=== PATIENT | female | born 1970 | race Hispanic/Latino ===

== ENCOUNTER → 2019-02-27 11:36 | Outpatient (CLI) | payer OTHER, SELFPAY ==
--- NOTE | 2019-02-27 | DI.RAD.S_ITS ---
PROCEDURE: XR KNEE LT 3V INDICATIONS: knee pain TECHNIQUE: 3 views of the knee were acquired. COMPARISON: CR, XR KNEE 3VW LT, 01/23/2016, 13:37. [facility], CR, XR KNEE ARTHRITIC SERIES LT, 06/27/2017, 14:24. FINDINGS: Bones: No fractures or dislocations. No suspicious bony lesions. There is degenerative joint disease, severe in the medial femorotibial joint, and moderate in the lateral femorotibial joint and patellofemoral joint. Soft tissues: Small joint effusion. Vascular calcifications consistent with atherosclerosis. IMPRESSION: Severe degenerative joint disease. Dictated by: Sharonda Hogan M.D. on 02/27/2019 at 17:31 Approved by: Sharonda Hogan M.D. on 02/27/2019 at 17:33
--- NOTE | 2019-02-27 | DI.RAD.S_ITS ---
PROCEDURE: XR KNEE RT 3V INDICATIONS: Pain in unspecified knee TECHNIQUE: 3 views of the knee were acquired. COMPARISON: [facility], CR, XR KNEE 4+ VIEWS RIGHT, 04/26/2018, 18:12. FINDINGS: Bones: No fractures or dislocations. No suspicious bony lesions. There is moderate tricompartmental knee joint degeneration, increased compared to the last exam. Soft tissues: Small joint effusion. No suspicious soft tissue calcifications. IMPRESSION: Moderate degenerative joint disease. Dictated by: Sharonda Hogan M.D. on 02/27/2019 at 17:29 Approved by: Sharonda Hogan M.D. on 02/27/2019 at 17:30
== END ==
DX: M25.561 Pain in right knee (principal); M25.562 Pain in left knee; M17.0 Bilateral primary osteoarthritis of knee
CPT/HCPCS: 73562